=== PATIENT | female | born 1990 | race Caucasian/White ===

== ENCOUNTER 2017-11-14 16:25 | Inpatient (IN) | payer OTHER ==
[~2017-11-14 16:25] MED LIST: Bupivacaine/Epinephrine 0.25% 30 ML VIAL ONE
[2017-11-14 18:24] LABS: Creatinine, Urine 76.04 mg/dL (47-110)
[2017-11-14 18:51] LABS: #Eosinphils 0.1 thou/uL (0.0-0.7); #Lymphocytes 1.9 thou/uL (1.20-3.40); #Monocytes 0.6 thou/uL (0.11-0.59); #Neutrophils 5.5 thou/uL (1.40-6.50); %Basophils 0.1 % (0.0-1.0); %Eosinophils 0.7 % (0.0-10.0); %Lymphocytes 23.5 % (21.0-51.0); %Neutrophils 68.6 % (42.0-75.0); Mean Corpuscular HGB CONC 35.5 g/dL (32.0-36.0); Mean Corpuscular Volume 90.1 fL (78.0-98.0); Mean Platelet Volume 8.8 fL (7.4-10.4); Platelet Count 126 thou/uL (130-400); RBC Distribution Width 12.3 % (11.5-14.5); Red Blood Cell (RBC) Count 3.77 mill/uL (4.20-5.40)
[2017-11-14 19:15] LABS: ALT (SGPT) 14 U/L (8-55); AST (SGOT) 22 U/L (5-34); Albumin 3.3 g/dL (3.5-5.0); Alkaline Phosphatase 123 U/L (40-150); Anion Gap 16 mmol/L (10-20); BUN (Urea Nitrogen) 12 mg/dL (7.0-18.7); Bilirubin, Total 0.2 mg/dL (0.2-1.2); Calc. Creatinine Clearance 177 mL/min (70-130); Calcium 9.4 mg/dL (7.8-10.44); Carbon Dioxide 17 mmol/L (22-29); Chloride 105 mmol/L (98-107); Estimated GFR-MDRD 90; Globulin 3.1 g/dL (2.4-3.5); Glucose 74 mg/dL (70-105); Potassium 4.4 mmol/L (3.5-5.1); Protein, Total 6.4 g/dL (6.0-8.3); Sodium 134 mmol/L (136-145)
[2017-11-14] MEDS ORDERED: Lidocaine 1% (PF) 30 ML VIAL SC PRN (19:28)
[2017-11-14] MEDS ORDERED: Ibuprofen 800 MG TAB PO PRN (19:28)
[2017-11-14] MEDS ORDERED: Butorphanol Tartrate 1 MG/ML VIAL SLOW IVP PRN (19:28)
[2017-11-14] MEDS ORDERED: Ondansetron HCl/PF 4 MG/2 ML Vial IVP PRN (19:28)
[2017-11-14] MEDS ORDERED: Acetaminophen 500 MG TAB PO PRN (19:28)
[2017-11-14] MEDS ORDERED: Diphenoxylate HCl/Atropine Tablet PO PRN ×2 (19:28)
[2017-11-14] MEDS ORDERED: Carboprost 250 MCG/ML AMP IM PRN (19:28)
[2017-11-14] MEDS ORDERED: Misoprostol 200 MCG TAB PR PRN (19:28)
[2017-11-14] MEDS ORDERED: Promethazine HCl 25 MG/ML VIAL IM PRN (19:28)
[2017-11-14] MEDS ORDERED: HYDROcodone/Acetaminophen 5/325 mg Tablet PO PRN ×2 (19:28)
[2017-11-14] MEDS ORDERED: NS w/ Oxytocin 10 units 500 ML IV SCH (19:30)
[2017-11-14] MEDS ORDERED: Misoprostol 100 MCG TAB VAG SCH (19:30)
--- NOTE | 2017-11-14 19:38 | PDOC.LDHP ---
Labor and Delivery H&P Chief complaint: other HPI: 27 y/o G1 at 36w6d, patient of Dr. Rodrigues, presents from clinic for PIH workup. Denies VB, ctx, LOF, decreased FM, SHULTZ, RUQ pain, or vision changes. ROS neg for HEENT, CV, pulm, GI, , neuro, psych, skin, musculoskeletal, or constitutional symptoms other than mentioned above. OB History Details: First Current complications: none Past Medical History: None Current medications: pre- vitamins Previous surgical history: other (Desmoid cyst removed) Allergies/Adverse Reactions: Allergies Allergy/AdvReac Type Severity Reaction Status Date / Time adhesive Allergy Rash Verified 11/14/17 17:23 adhesive tape Allergy Rash Verified 11/14/17 17:23 Social history: none - Physical Exam Vital signs reviewed and normal: yes General: NAD, resting Lungs: nonlabored breathing Abdomen: gravid Extremeties: pitting edema FHT: category 1 (135, mod variability, + accels, no decels) [place] contractions every: irregular - Vaginal Exam cm dilated: 0 - OB Labs Blood type: O RH: positive Antibody Screen: negative HIV: negative RPR: negative HEPSAg: negative 1 hour GCT: negative GBS: negative Rubella: immune Additional Labs: Laboratory Results - last 24 hr 11/14/17 11/14/17 11/14/17 17:30 18:39 18:41 WBC 8.0 RBC 3.77 L Hgb 12.0 Hct 33.9 L MCV 90.1 MCH 32.0 H MCHC 35.5 RDW 12.3 Plt Count 126 L MPV 8.8 Neutrophils % 68.6 Lymphocytes % 23.5 Monocytes % 7.0 Eosinophils % 0.7 Basophils % 0.1 Neutrophils # 5.5 Lymphocytes # 1.9 Monocytes # 0.6 H Eosinophils # 0.1 Basophils # 0.0 Sodium 134 L Potassium 4.4 Chloride 105 Carbon Dioxide 17 L Anion Gap 16 BUN 12 Creatinine 0.78 Estimated GFR (MDRD) 90 Glucose 74 Calcium 9.4 Total Bilirubin 0.2 AST 22 ALT 14 Alkaline Phosphatase 123 Serum Total Protein 6.4 Albumin 3.3 L Globulin 3.1 Albumin/Globulin Ratio 1.1 L U Random Total Protein 56 H Urine Creatinine 76.04 - Assessment L&D Assessment: medically indicated induction - Plan Plan: admit to L&D, cervical ripening, informed consent obtained, anesthesia consult for pain management (if desired) -: Will start cytotec induction after midnight. BPs have been mild range during observation. Will continue to monitor BPs and if persistently severe range, will start MgSO4.
[2017-11-14 20:47] VITALS: BMI 39.6
[2017-11-14] MEDS: NS / Oxytocin 40 units/1000ml 1,000 ML IV PRN (22:22)
[2017-11-14] MEDS: Lactated Ringer's 1,000 ML IV SCH (23:54)
[2017-11-14] MEDS: Misoprostol 100 MCG TAB VAG SCH (23:54)
[2017-11-15 00:49] LABS: HBSAg Index 0.17 S/CO (0-0.99); Hep B Surf Ag Non-Reactive S/CO (NonReactive); Syphilis Antibody Nonreactive (Nonreactive); Syphilis Antibody Index 0.05 S/CO (<1.00 Non-Reactive)
[2017-11-15] MEDS: Misoprostol 100 MCG TAB VAG SCH ×4 (06:11→23:18)
--- NOTE | 2017-11-15 08:13 | PDOC.LDPN ---
Labor & Delivery Progress Note - Subjective Subjective: comfortable - Objective Vital signs reviewed and normal: yes Abnormal vital signs: mild range BP, isolated severe range General: resting Dilation: 2 Effacement: 75% Station: -2 FHT: category 1 [place] contractions every: 2 AROM: clear fluid - Assessment (1) induced hypertension Code(s): O13.9 - GESTATIONAL HTN W/O SIGNIFICANT PROTEINURIA, UNSP TRIMESTER Current Visit: Yes Status: Acute (2) 37 weeks gestation of Code(s): Z3A.37 - 37 WEEKS GESTATION OF Current Visit: Yes Status : Acute (3) 37 weeks gestation of Code(s): Z3A.37 - 37 WEEKS GESTATION OF Current Visit: Yes Status : Acute Plan: continue plan of care -: Pt here for IOL for preeclampsia without severe features. Cook balloon insertion attempted but did not stay in place after inflation. Balloon removed and cervix favorable for AROM. AROM and clear fluid noted.
[2017-11-15] MEDS ORDERED: DISCONTINUE ALL PREVIOUS NARCOTICS FS SCH (10:15)
[2017-11-15] MEDS: Lactated Ringer's 1,000 ML IV SCH ×3 (10:41→23:18)
[2017-11-15] MEDS ORDERED: Fentanyl 100 MCG/2 ML VIAL ONE (11:00)
[2017-11-15] MEDS: Bupivacaine 0.5% 20 ML, fentaNYL Citrate/PF 400 MCG in Sodium Chloride 0.9% 72 ML EPIDURAL SCH ×2 (11:35→18:19)
--- NOTE | 2017-11-15 22:29 | PDOC.OPDEL ---
OB Operative/Delivery Note Delivery Dr/Surgeon: Ravi Pre-Delivery Diagnosis: medically indicated induction (PIH without severe featurse) Weeks gestation: 37 Anesthesia: epidural - Findings A Sex: male - 1 min: 8 - 5 min: 8 - Additional Findings/Plan Placenta delivered: spontaneous Repaired Obstetrical Laceration: left labial Estimated blood loss: QBL: 227ml Compilations/Other Findings: loose nuchal reduced at perineum Post delivery plan: routine recovery
[2017-11-16] MEDS ORDERED: Adacel (T-DAP) 0.5 ML VIAL IM ONE (00:25)
[2017-11-16] MEDS ORDERED: NS / Oxytocin 40 units/1000ml 1,000 ML IV SCH (00:25)
[2017-11-16] MEDS: NS / Oxytocin 40 units/1000ml 1,000 ML IV PRN (00:25)
[2017-11-16] MEDS ORDERED: Benzocaine/Menthol 20-0.5% 60 ML CAN TOP PRN (00:25)
[2017-11-16] MEDS ORDERED: Acetaminophen/Codeine 30-300mg Tablet PO PRN (00:25)
[2017-11-16] MEDS ORDERED: Ondansetron HCl/PF 4 MG/2 ML Vial IVP PRN ×2 (00:25→11:06)
[2017-11-16] MEDS ORDERED: diphenhydrAMINE 25 MG CAP PO PRN (00:25)
[2017-11-16] MEDS ORDERED: Milk Of Magnesia 30 ML UDCUP PO PRN (00:25)
[2017-11-16] MEDS ORDERED: Bisacodyl 10 MG SUPP PR PRN (00:25)
[2017-11-16] MEDS ORDERED: Promethazine HCl 25 MG/ML VIAL IM PRN ×2 (00:25→11:06)
[2017-11-16] MEDS ORDERED: Preparation H Ointment 28 GM TUBE PR PRN (00:25)
[2017-11-16] MEDS ORDERED: Lanolin Ointment 7 GM TUBE TOP PRN (00:25)
[2017-11-16] MEDS: Ibuprofen 800 MG TAB PO SCH ×3 (01:19→17:15)
[2017-11-16 05:53] LABS: Hemoglobin 10.3 g/dL (12.0-16.0); Mean Corpuscular HGB CONC 35.4 g/dL (32.0-36.0); Mean Corpuscular Volume 90.4 fL (78.0-98.0); Mean Platelet Volume 8.7 fL (7.4-10.4); Platelet Count 103 thou/uL (130-400); RBC Distribution Width 12.5 % (11.5-14.5); Red Blood Cell (RBC) Count 3.22 mill/uL (4.20-5.40); White Blood Cell (WBC) Count 13.5 thou/uL (4.8-10.8)
[2017-11-16] MEDS: Ferrous Sulfate 325 MG TAB PO SCH ×2 (07:25→17:13)
--- NOTE | 2017-11-16 08:24 | PDOC.PP ---
Post Progress Note Post Day #: 1 Subjective: doing well, no concerns, no PIH sx PO intake tolerated: yes Flatus: yes Ambulation: yes Vital Signs (12 hours) Temp Pulse Resp BP BP 11/16/17 07:50 97.8 F 55 L 20 157/84 H 11/16/17 05:00 97.7 F 68 18 157/77 H 11/16/17 03:10 97.9 F 62 20 130/62 11/16/17 02:25 98.6 F 77 20 11/16/17 02:00 97.5 F L 79 18 128/73 11/16/17 01:00 97.9 F 69 20 142/73 H Weight Weight 224 lb - Physical Examination General: NAD Respiratory: non-labored breathing Abdominal: lochia (normal) Fundus firm & at: below umb Skin: no rash Neurological: no gross focal deficits Psychiatric: A&Ox3, normal affect Result Diagrams: 11/16/17 05:13 11/14/17 18:41 Additional Labs: Post Labs Blood Type O POSITIVE 11/14/17 23:44 Hep Bs Antigen Non-Reactive S/CO (NonReactive) 11/14/17 23:44 (1) induced hypertension Code(s): O13.9 - GESTATIONAL HTN W/O SIGNIFICANT PROTEINURIA, UNSP TRIMESTER Status: Acute (2) 37 weeks gestation of Code(s): Z3A.37 - 37 WEEKS GESTATION OF Status: Acute (3) Vaginal delivery Code(s): O80 - ENCOUNTER FOR FULL-TERM UNCOMPLICATED DELIVERY Status: Acute - Assessment/Plan PPD1 doing well, sp IOL for PIH without severe features, and BP PP in persistent mild range. Discussed continued and close observation of BP PP and indications for antihypertensive therapy PP.
[2017-11-16] MEDS: Prenatal Vitamin 1 TAB PO SCH (08:49)
[2017-11-16] MEDS: Docusate Calcium (SURFAK) 240 MG CAP PO SCH ×2 (08:49→21:23)
[2017-11-16] MEDS ORDERED: Lactated Ringer's 500 ML IV PRN (11:06)
[2017-11-16] MEDS ORDERED: ePHEDrine/0.9% NaCl/PF SYRINGE 50 mg/10 ml SLOW IVP PRN (11:06)
[2017-11-16] MEDS ORDERED: Acetaminophen 325 MG TAB PO PRN (11:06)
[2017-11-16] MEDS ORDERED: Naloxone HCl 0.4 mg/ml Vial IVP PRN ×2 (11:06)
[2017-11-16] MEDS ORDERED: Eucerin (Mineral Oil/Petrolatum,White) 30 gm Jar TOP PRN (11:06)
[2017-11-16] MEDS ORDERED: diphenhydrAMINE 50 MG/ML VIAL IVP PRN (11:06)
[2017-11-16] MEDS ORDERED: fentaNYL Citrate/PF 400 MCG, Bupivacaine 0.5% 20 ML in Sodium Chloride 0.9% 72 ML EPIDURAL SCH (11:15)
[2017-11-16] MEDS ORDERED: Communication Order-Pharmacy FS SCH (11:15)
[2017-11-16] MEDS: Acetaminophen/Codeine 30-300mg Tablet PO PRN (18:22)
[2017-11-17] MEDS: Ibuprofen 800 MG TAB PO SCH ×3 (00:32→17:14)
--- NOTE | 2017-11-17 07:49 | PDOC.PP ---
Post Progress Note Post Day #: Doing well without complaints. PO intake tolerated: yes Flatus: yes Ambulation: yes Vital Signs (12 hours) Temp Pulse Resp BP 11/17/17 04:08 98.7 F 60 18 143/70 H 11/17/17 00:32 98.7 F 66 18 150/74 H 11/16/17 20:14 98.2 F 68 18 143/81 H Weight Weight 224 lb - Physical Examination General: NAD Respiratory: non-labored breathing Abdominal: lochia (normal), no distention, appropriately TTP Fundus firm & at: U-2 Skin: no rash Neurological: no gross focal deficits Psychiatric: A&Ox3, normal affect Result Diagrams: 11/16/17 05:13 11/14/17 18:41 Additional Labs: Post Labs Blood Type O POSITIVE 11/14/17 23:44 Hep Bs Antigen Non-Reactive S/CO (NonReactive) 11/14/17 23:44 (1) induced hypertension Code(s): O13.9 - GESTATIONAL HTN W/O SIGNIFICANT PROTEINURIA, UNSP TRIMESTER Status: Acute (2) Vaginal delivery Code(s): O80 - ENCOUNTER FOR FULL-TERM UNCOMPLICATED DELIVERY Status: Acute - Assessment/Plan Patient without complaints. BPs mostly mild range but occasional severe range, including this am. Will continue to watch BPs and if all normal to mild range, consider d/c home this evening. Otherwise, plan d/c home tomorrow.
[2017-11-17] MEDS: Acetaminophen/Codeine 30-300mg Tablet PO PRN ×3 (09:10→22:42)
[2017-11-17] MEDS: Docusate Calcium (SURFAK) 240 MG CAP PO SCH (09:10)
[2017-11-17] MEDS: Prenatal Vitamin 1 TAB PO SCH (09:10)
[2017-11-17] MEDS: Ferrous Sulfate 325 MG TAB PO SCH ×2 (09:13→15:48)
[2017-11-17] MEDS ORDERED: Labetalol HCl 100 MG/20 ML VIAL SLOW IVP SCH (18:15)
[2017-11-17] MEDS ORDERED: NIFEdipine XL 30 MG TAB PO SCH (18:15)
[2017-11-18] MEDS: Ibuprofen 800 MG TAB PO SCH ×3 (01:08→15:06)
[2017-11-18] MEDS: Docusate Calcium (SURFAK) 240 MG CAP PO SCH ×2 (01:10→09:10)
[2017-11-18] MEDS: Acetaminophen/Codeine 30-300mg Tablet PO PRN ×3 (04:30→12:42)
[2017-11-18] MEDS ORDERED: NIFEdipine XL 30 MG TAB PO SCH (09:00)
[2017-11-18] MEDS: Prenatal Vitamin 1 TAB PO SCH (09:10)
[2017-11-18] MEDS: Ferrous Sulfate 325 MG TAB PO SCH (09:12)
--- NOTE | 2017-11-18 09:22 | PRG ---
DATE OF SERVICE: 11/18/2017 SUBJECTIVE: The patient is day #3, status post a term spontaneous vaginal delivery induce d for PIH at 37 weeks. Her course has been complicated with intermittent severe range in blood pressures. Yesterday, on day #2, the patient was started on Procardia-XL 30 mg laura y. She also was started on p.o. 30 mg daily. The patient since then has had mild range blood pressu res in the 140s to 150s. OBJECTIVE: VITAL SIGNS: Her most recent blood pressure is 150/73, temperature 98.3, pulse is 65, respiratory ra te of 18. Her blood pressure max, in the last 24 hours, was 173/86. GENERAL: She appears to be in no acute distress. She is alert and oriented, cooperative and pleasan t to interact with. HEAD: Normocephalic, atraumatic. ABDOMEN: Fundus is firm. EXTREMITIES: Nontender, nonedematous. ASSESSMENT AND PLAN: The patient is day #3, status post a term spontaneous vaginal delive ry, induced at 37 weeks for PIH. She has been having intermittent severe pressures, now on Procardia -XL 30 mg daily. We will continue to watch her through the day. Should she remain in the normal to mild range blood pressures, she can be discharged this evening.
[2017-11-18 13:20] VITALS: TEMP 98.6
[2017-11-18 15:17] VITALS: BP 132/64
== END 2017-11-18 17:30 | disposition home or self-care (01) | DRG 775 ==
LOC: L&D/OP 16:25 → L&D 21:40 → 3SW 11-16 00:57
PROVIDERS: ADMIT Obstetrics & Gynecology; ATTEND Obstetrics & Gynecology
PROC: 10E0XZZ Delivery of Products of Conception, External Approach (ICD-10-PCS; principal; 2017-11-14)
DX: O13.3 Gestational [pregnancy-induced] hypertension without significant proteinuria, third trimester (principal); Z3A.37 37 weeks gestation of pregnancy; Z37.0 Single live birth
CPT/HCPCS: 36415; 51702; 80053; 82570; 84156; 85025; 85027; 86780; 86850; 86900; 86901; 87340; 99285; A4216; C1726; J0595; J2001; J3010; J3490; J7050

== ENCOUNTER 2019-04-02 14:01 | Outpatient (CLI) | payer OTHER | END 2019-04-02 14:02 | disposition home or self-care (01) | LOC: CTENTCT 14:01 | PROVIDERS: ATTEND Specialist | DX: J32.8 Other chronic sinusitis (principal) | CPT/HCPCS: 70486 ==

== ENCOUNTER 2019-05-23 09:06 | Outpatient (CLI) | payer OTHER ==
[2019-05-23] MEDS ORDERED: Iopamidol-370 76% 500 ML 1 ML ONE (10:04)
--- NOTE | 2019-05-23 15:36 | CT ---
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 History of prio r surgery and radiation therapy. COMPARISON: CT abdomen and pelvis obtained at [facility] on 09/01/2016 Technique: Multiple contiguous axial CT images are obtained through the abdomen and pelvis with IV contrast. Cor onal reformatted images are provided. FINDINGS: Lower Chest: Few tiny pleural-based densities are seen in each lung base. No discrete pulmonary nodul e, mass, or pleural effusion is seen. Vessels: Abdominal aorta is normal in caliber without enhancement aortic dissection. Abdomen: Portal vein:Patent Gallbladder: Mostly contracted. Liver: Punctate too small to characterize hypodensity dome of the liver. Liver otherwise has a normal CT appearance. Spleen: within normal limits. Pancreas: within normal limits. Adrenals: within normal limits. Kidneys: within normal limits. Bowel: Small amount retained fecal material seen throughout the colon. Loops of small bowel are chanelle l in caliber. Appendix: The appendix is visualized and normal in caliber. Peritoneum: No ascites or free air; no fluid collection. Mesentery and Retroperitoneum: No enlarged mesenteric or retroperitoneal lymph nodes. Abdominal Wall: Linear area of scarring is seen within the posterolateral right flank region just abo ve the iliac crest similar to prior study and likely related to prior surgery. Previously noted small fluid collection in this region on prior exam is no longer visualized. Pelvis: Reproductive Organs: No pelvic masses. Gas is present within the vagina which is probably related to female hygiene product. Pelvis within normal limits. Bladder: Partially distended and grossly normal in appearance. Bones: No suspicious lytic or sclerotic osseous lesion is seen. IMPRESSION: 1. No acute findings are seen in the abdomen or pelvis. 2. No CT findings to suggest metastatic disease. 3. Area of scarring right posterolateral and inferior flank region.
== END 2019-05-23 09:07 | disposition home or self-care (01) ==
LOC: BICCT 09:06
PROVIDERS: ATTEND Internal Medicine Hematology & Oncology
DX: D48.1 Neoplasm of uncertain behavior of connective and other soft tissue (principal); M54.5 Low back pain; R93.5 Abnormal findings on diagnostic imaging of other abdominal regions, including retroperitoneum
CPT/HCPCS: 74177

== ENCOUNTER 2022-07-10 13:29 | Outpatient (CLI) | payer BC | END 2022-07-10 13:30 | disposition home or self-care (01) | LOC: TBSIIMAG 13:29 | PROVIDERS: ATTEND Family Medicine | DX: G43.009 Migraine without aura, not intractable, without status migrainosus (principal); R20.0 Anesthesia of skin; R20.2 Paresthesia of skin | CPT/HCPCS: 70551; 70553 ==

== ENCOUNTER 2022-07-27 08:55 | Day surgery (SDC) | payer BC ==
[2022-07-26 14:20] VITALS: BMI 31.3
[2022-07-27] MEDS ORDERED: Oxymetazoline HCl 0.05% (30 ML BOT) ONE ×2 (10:38→10:59)
[2022-07-27] MEDS ORDERED: Bacitracin Zinc Ointment 30 gm TUBE ONE (10:59)
[2022-07-27] MEDS ORDERED: EPINEPHrine 1 MG/ML AMP ONE ×2 (10:59→11:39)
[2022-07-27] MEDS ORDERED: Lidocaine 1% (PF) 30 ML VIAL ONE (10:59)
[2022-07-27] MEDS ORDERED: fentaNYL PF 100 MCG/2 ML SYRINGE ONE (11:02)
[2022-07-27] MEDS ORDERED: SUGAMMADEX SODIUM 200 MG/2 ML VIAL ONE (11:11)
[2022-07-27] MEDS ORDERED: Rocuronium Bromide 10 MG/ML (10ML VIAL) ONE (11:26)
[2022-07-27] MEDS ORDERED: Dexamethasone 20 MG/5 ML VIAL ONE (11:26)
[2022-07-27] MEDS ORDERED: Glycopyrrolate 0.2 MG/ML 5 ML SYRINGE ONE (11:26)
[2022-07-27] MEDS ORDERED: Ondansetron PF 4 MG/2 ML Vial ONE (11:26)
[2022-07-27] MEDS ORDERED: NEOSTIGMINE 3 MG/3 ML SYR 3 MG/3 ML SYRINGE ONE (11:26)
[2022-07-27] MEDS ORDERED: PROPOFOL 200 MG/20 ML VIAL ONE (11:26)
[2022-07-27] MEDS ORDERED: Lidocaine 1% PF 5 ML VIAL ONE (11:26)
== END 2022-07-27 14:40 | disposition home or self-care (01) ==
LOC: SDC 08:55
PROVIDERS: ATTEND Specialist
PROC: 099R8ZZ Drainage of Left Maxillary Sinus, Via Natural or Artificial Opening Endoscopic (ICD-10-PCS; principal; 2022-07-27)
PROC: 099X8ZZ Drainage of Left Sphenoid Sinus, Via Natural or Artificial Opening Endoscopic (ICD-10-PCS; principal; 2022-07-27)
PROC: 099T8ZZ Drainage of Left Frontal Sinus, Via Natural or Artificial Opening Endoscopic (ICD-10-PCS; principal; 2022-07-27)
PROC: 099Q8ZZ Drainage of Right Maxillary Sinus, Via Natural or Artificial Opening Endoscopic (ICD-10-PCS; principal; 2022-07-27)
PROC: 09TU8ZZ Resection of Right Ethmoid Sinus, Via Natural or Artificial Opening Endoscopic (ICD-10-PCS; principal; 2022-07-27)
PROC: 099S8ZZ Drainage of Right Frontal Sinus, Via Natural or Artificial Opening Endoscopic (ICD-10-PCS; principal; 2022-07-27)
PROC: 09TV8ZZ Resection of Left Ethmoid Sinus, Via Natural or Artificial Opening Endoscopic (ICD-10-PCS; principal; 2022-07-27)
PROC: 099W8ZZ Drainage of Right Sphenoid Sinus, Via Natural or Artificial Opening Endoscopic (ICD-10-PCS; principal; 2022-07-27)
PROC: 09SL8ZZ Reposition Nasal Turbinate, Via Natural or Artificial Opening Endoscopic (ICD-10-PCS; principal; 2022-07-27)
DX: J01.81 Other acute recurrent sinusitis (principal); J32.4 Chronic pansinusitis; J31.2 Chronic pharyngitis; J34.3 Hypertrophy of nasal turbinates; J30.1 Allergic rhinitis due to pollen; Z88.5 Allergy status to narcotic agent; Z91.048 Other nonmedicinal substance allergy status
CPT/HCPCS: 85014; J0171; J1100; J2001; J2405; J2704